=== PATIENT | female | born 1990 | race African-American/Black ===

== ENCOUNTER → 2017-07-18 | Day surgery (SDC) | payer OTHER ==
[~2017-07-18] MED LIST: Acetaminophen 500 MG TAB PO SCH; Iron Sucrose Complex 500 MG in Sodium Chloride 0.9% 250 ML 250 ML IVPB SCH
[2017-07-18 16:00] VITALS: BMI 24.1
--- NOTE | 2017-07-18 16:08 | PDOC.LDHP ---
Addendum entered and electronically signed by Bernie Cain DO 07/18/17 18 :09: Please addend GA where it reads current gestational age (weeks): Should be 36.5 wks Concern for breech presentation: Bedside U/S performed. Vertex position noted on U/S. Original Note: Labor and Delivery H&P Chief complaint: other (Presents for iron infusion) HPI: 26 year old at 36.5 wks by 9.4 wk U/S presents for iron infusion. No complications. Patient taking iron supplementation BID. History of anemia of in prior . Patient denies vaginal discharge, vaginal bleeding , contractions, LOF, shortness of breath, fatigue, or chest pain. Current gestational age (weeks): 35 (35.6) Due date: 08/10/17 Dating criteria: last menstrual period, first trimester ultrasound Grav: 2 Para: 1 OB History Details: 1. Anemia complicating 2. Hx of preeclampsia 3. Hx of prior C/S Current complications: other (Anemia complicating ) Abnormal US findings: No Current medications: pre-lio vitamins, iron (BID), other (Just stopped taking baby ASA for hx of preeclampsia in ) Previous surgical history: low tranverse CS Social history: none - Physical Exam Vital signs reviewed and normal: yes General: NAD, resting Heart: RRR Lungs: nonlabored breathing Abdomen: NTTP Extremeties: no edema FHT: category 1, variability present [place] contractions every: Irritability on strip - OB Labs Blood type: AB RH: positive Antibody Screen: negative HIV: negative RPR: negative HEPSAg: negative GBS: positive Rubella: immune - Assessment 1. IUP 2. Anemia complicating 3. History of preeclampsia in prior 4. Hx of LTCS - Plan -: 1. Patient receiving iron infusion 2. Continue iron BID 3. Continue vitamins 4. BP within normal range 5. Category I strip 6. Routine care <Bernie Cain - Last Filed: 07/18/17 16:05> <Ender Roman - Last Filed: 09/27/17 15:44> Allergies/Adverse Reactions: Allergies Allergy/AdvReac Type Severity Reaction Status Date / Time No Known Allergies Allergy Verified 08/11/17 22:47 Attending Addendum - Attending Addendum Date/Time: 09/27/17 1548 I personally evaluated the patient and discussed the management with Dr. Parada. I agree with the History, Examination, Assessment and Plan documented above with any addition or exceptions noted below. 26 year old at 36.5 wks w/ h/o prior Csxn and PreEc. in prior preg. with severe anemia here for Iron Infusion. Not in labor. <Ender Roman - Last Filed: 09/27/17 15:44>
[2017-07-18 17:46] VITALS: BP 106/56; TEMP 97.9
--- NOTE | 2017-07-18 23:33 | ULT ---
ULTRASOUND BIOPHYSICAL PROFILE: 07/18/17 HISTORY: Large late deceleration. FINDINGS: A single live intrauterine gestation is seen with a heart rate of 157 beats per minute. Placent a is anterior and to the right. DEXTER measures 12.6 cm. to the position is vertex. Normal m ovement, tone, breathing movements and amniotic fluid volume are seen. IMPRESSION: Ultrasound biophysical profile score is 8 out of 8. POS: [facility]
== END | disposition home or self-care (01) ==
LOC: L&D/OP 15:19
PROVIDERS: ATTEND Family Medicine
DX: O99.013 Anemia complicating pregnancy, third trimester (principal); Z79.899 Other long term (current) drug therapy; Z3A.36 36 weeks gestation of pregnancy; Z98.891 History of uterine scar from previous surgery; Z87.59 Personal history of other complications of pregnancy, childbirth and the puerperium
CPT/HCPCS: 76815; 76819; 96365; 96366; 96374; 99283; A4216; J1756; J7050

== ENCOUNTER 2017-08-11 09:36 | Inpatient (IN) | payer OTHER ==
[2017-08-11] MEDS ORDERED: Bupivacaine PF 0.5% 30 ML VIAL ONE (11:11)
[2017-08-11] MEDS ORDERED: Lidocaine 2% MPF 10 ML AMP (For Epidural Use) ONE (11:11)
[2017-08-11 22:56] VITALS: BMI 24.5
[2017-08-11] MEDS ORDERED: Ondansetron HCl/PF 4 MG/2 ML Vial IVP PRN (23:13)
[2017-08-11] MEDS ORDERED: Acetaminophen 500 MG TAB PO PRN (23:13)
[2017-08-11] MEDS ORDERED: Promethazine HCl 25 MG/ML VIAL IM PRN (23:13)
[2017-08-11] MEDS ORDERED: LR / Pitocin 40 units/1000 ml 1,000 ML IV PRN (23:16)
[2017-08-11] MEDS ORDERED: Lidocaine 1% (PF) 30 ML VIAL SC PRN (23:16)
--- NOTE | 2017-08-11 23:38 | PDOC.LDHP ---
Labor and Delivery H&P Chief complaint: scheduled induction HPI: 26 yo @ 40w1d by LMP consistent with 9.4wk US presents for elective balloon induction for TOLAC. She denies vaginal bleeding or discharge. She also denies contractions. She states she has felt movement. She denies vision changes, headaches, abdominal pain, lower extremity edema, or recent illness. She has some concerns about pain associated with the balloon, but other than that no real concerns. Current gestational age (weeks): 40 (1) Due date: 08/10/17 Dating criteria: last menstrual period, first trimester ultrasound (9.4 week US) Grav: 2 Para: 1 OB History Details: - Previous for non-reassuring FHTs - Hx of Pre-eclampsia - Anemia in Current complications: none Abnormal US findings: No Past Medical History: None Current medications: pre-lio vitamins, iron Previous surgical history: low tranverse CS Social history: none - Physical Exam Vital signs reviewed and normal: yes General: NAD, resting Heart: RRR Lungs: CTAB Abdomen: gravid Extremeties: no edema FHT: category 1 (Baseline 150, Moderative Variability, No decels, Positive accelerations) [place] contractions every: 6 minutes - Vaginal Exam cm dilated: 2 Effacement: 50% (60%) Station: -2 - OB Labs Blood type: AB RH: positive Antibody Screen: negative HIV: negative RPR: negative HEPSAg: negative 1 hour GCT: negative GBS: negative Urine drug screen: not done - Assessment L&D Assessment: elective induction at term 26 yo @ 40w1d by LMP consistent with 9.4wk US presents for elective induction 1. Term - TOLAC - Proceed with balloon placement - Q4h checks with balloon tension - monitoring - Continue supportive care - Plan Plan: admit to L&D <Guillermo Chopra - Last Filed: 08/11/17 23:50> <Allison Rodriguez - Last Filed: 08/12/17 01:31> Allergies/Adverse Reactions: Allergies Allergy/AdvReac Type Severity Reaction Status Date / Time No Known Allergies Allergy Verified 08/11/17 22:47 Attending Addendum - Attending Addendum I personally evaluated the patient and discussed the management with Dr. Chopra and Bud I agree with the History, Examination, Assessment and Plan documented above with any addition or exceptions noted below- 30 year old @40 1/7 weeks admitted for balloon cervical ripening for TOLAC. Denies any ctx, LOF, VB. (+) FM. POBHx- LCT C/S @41 weeks for nonreassuring FHTs, chorioamnionitis weight, severe pre-eclampsia 8#7, male PE: Afebrile BP 114/59 Normal labs SVE 2/60/-2 Category 1 FHTs (130s/moderate variability/ (+) accels/no decels) [place] irregular ctx A/P: IUP @ 40 1/7 weeks for balloon cervical ripening for TOLAC Will place balloon and continue to monitor <Allison Rodriguez - Last Filed: 08/12/17 01:31>
[2017-08-11] MEDS: Lactated Ringer's 1,000 ML IV SCH (23:44)
[2017-08-12 00:07] LABS: Hemoglobin 10.3 g/dL (12.0-16.0); Mean Corpuscular HGB CONC 32.6 g/dL (32.0-36.0); Mean Corpuscular Hemoglobin 23.2 pg (27.0-31.0); Mean Corpuscular Volume 71.1 fl (81.0-99.0); Mean Platelet Volume 9.9 fL (7.4-10.4); Platelet Count 189 thou/uL (130-400); RBC Distribution Width 15.4 % (11.5-14.5); Red Blood Cell (RBC) Count 4.42 mill/uL (4.20-5.40); White Blood Cell (WBC) Count 8.7 thou/uL (4.8-10.8)
--- NOTE | 2017-08-12 00:14 | PDOC.LDPN ---
Labor & Delivery Progress Note - Subjective Subjective: comfortable, no concerns - Objective Vital signs reviewed and normal: yes General: NAD Uterine fundus: non tender SVE: 2/60/-2 FHT: category 1 [place] contractions every: 6-8 min Procedures: Cook's Balloon placed with 80ml sterile H20 in each balloon- tolerated well -: 26 yo @ 40w1d by LMP c/w 9.4wk US presents for IOL for TOLAC- 1. Term sIUP- balloon placed at 00:00 on 08/12/17 and tolerated well. 80ml in each balloon with mild traction. leave in place x 12hr with q4hr balloon checks. 2. prior c/s x 1- TOLAC risks & benefits discussed and pt consents to proceed with TOLAC. 3. pain mgmt- epidural prn.
[2017-08-12 00:41] LABS: HBSAg Index 0.77 S/CO (0-0.99); Hep B Surf Ag Non-Reactive S/CO (NonReactive); Syphilis Antibody Nonreactive (Nonreactive); Syphilis Antibody Index 0.06 S/CO (<1.00 Non-Reactive)
--- NOTE | 2017-08-12 06:51 | PDOC.LDPN ---
Labor & Delivery Progress Note - Subjective Subjective: comfortable, vaginal pressure - Objective Vital signs reviewed and normal: yes General: NAD, breathing through contractions Uterine fundus: non tender SVE: 6:30 Dilation: 5.5 Effacement: 50% Station: -2 FHT: category 1, variability present [place] contractions every: 6 Plan: continue plan of care -: 26 yo @ 40w1d by LMP c/w 9.4wk US presents for IOL for TOLAC- 1. Term sIUP- balloon placed at 00:00 on 08/12/17 and tolerated well. 80ml in each balloon with mild traction. Balloon fell out at 0630. Pt checked and has progressed to 5.5/60/-2. Cat 1 strip. FHT 130. Moderate variability noted. -Will check in a few hours. -Possibly start pitocin to help augment labor as ctx are still pretty far apart. 2. prior c/s x 1- TOLAC risks & benefits discussed and pt consents to proceed with TOLAC. 3. pain mgmt- epidural prn. <Jamey Zaragoza - Last Filed: 08/12/17 06:52> Attending Addendum - Attending Addendum I personally evaluated the patient and discussed the management with Dr. Zaragoza I agree with the History, Examination, Assessment and Plan documented above with any addition or exceptions noted below- Patient feeling some mild contractions. Afebrile VSS SVE 5.5/60%/-2 ballotable; Category 1 FHTs; [place]- ctx q6 minutes. A/P: IUP @ 40 1/7 weeks- balloon fell out and now dilated to 5.5 cm; will start pitocin. <Allison Rodriguez - Last Filed: 08/12/17 07:50>
[2017-08-12] MEDS: Lactated Ringer's 1,000 ML IV SCH ×3 (07:02→22:40)
[2017-08-12] MEDS ORDERED: LR 500 ML/Oxytocin 10 units 500 ML IV SCH (07:45)
--- NOTE | 2017-08-12 08:46 | PDOC.LDPN ---
Labor & Delivery Progress Note - Subjective Subjective: comfortable, vaginal pressure - Objective Vital signs reviewed and normal: yes General: NAD, resting Uterine fundus: non tender SVE: 8:30 Dilation: 6 Effacement: 50% Station: -2 FHT: category 1, variability present [place] contractions every: 3-5 min - Assessment (1) Encounter for trial of labor Code(s): O33.9 - MATERNAL CARE FOR DISPROPORTION, UNSPECIFIED Current Visit: Yes Status: Acute (2) Term Code(s): Z34.80 - ENCOUNTER FOR SUPRVSN OF NORMAL , UNSP TRIMESTER Current Visit: Yes Status: Acute Plan: continue plan of care, pitocin for augmentation -: 26 yo @ 40w1d by LMP c/w 9.4wk US presents for IOL for TOLAC- 1. Term sIUP- balloon placed at 00:00 on 08/12/17 and tolerated well. 80ml in each balloon with mild traction. Balloon fell out at 0630. Pt check is 50/-2 @ 0830. Cat 1 strip. FHT 130. Moderate variability noted. -Will check in a few hours. -Pitorcin started to augment labor. Ctx every 3-5 minutes now. 2. prior c/s x 1- TOLAC risks & benefits discussed and pt consents to proceed with TOLAC. 3. pain mgmt- epidural prn. Not having pain very much right now. <Jamey Zaragoza - Last Filed: 08/12/17 08:43> Attending Addendum - Attending Addendum I personally evaluated the patient and discussed the management with Dr. Zaragoza I agree with the History, Examination, Assessment and Plan documented above with any addition or exceptions noted below. 26 yo female at 40.1 wks by LMP/9.5 wk sono here for TOLAC. At this time continues to have cat 1 tracing. SVE now 50/-2. Repeat in 2 hours. Pitocin per protocol. Will access for AROM in order to place IUPC. Case/consult Dr. Soliz. Nontender fundus. Patient managing pain without medications. VaheMD <Meme Burns - Last Filed: 08/12/17 15:46>
--- NOTE | 2017-08-12 10:54 | PDOC.LDPN ---
Labor & Delivery Progress Note - Subjective Subjective: comfortable, vaginal pressure - Objective Vital signs reviewed and normal: yes General: NAD, resting Uterine fundus: non tender SVE: 10:30 Dilation: 7 Effacement: 50% Station: -2 FHT: category 2, late decelerations, variability present [place] contractions every: 3 AROM: meconium stained fluid (thick) IUPC placed: yes FSE placed: yes Resuscitative measures: maternal oxygen, maternal position change - Assessment (1) Encounter for trial of labor Code(s): O33.9 - MATERNAL CARE FOR DISPROPORTION, UNSPECIFIED Current Visit: Yes Status: Acute (2) Term Code(s): Z34.80 - ENCOUNTER FOR SUPRVSN OF NORMAL , UNSP TRIMESTER Current Visit: Yes Status: Acute -: 26 yo @ 40w1d by LMP c/w 9.4wk US presents for IOL for TOLAC- 1. Term sIUP- balloon placed at 00:00 on 08/12/17 and tolerated well. 80ml in each balloon with mild traction. Balloon fell out at 0630. Pt check @ 10:30 7/50/-2. AROM @ 10:30. Thick meconium fluid noted. IUPC placed. Cat 2 strip after AROM, HR dropped into bradycardia in the 90s. FSE was placed and strip improved to Cat 1 w/ FHT around 140. -Will check in a few hours. -Pitorcin to augment labor. Ctx every 3 minutes now 2. prior c/s x 1- TOLAC risks & benefits discussed and pt consents to proceed with TOLAC. 3. pain mgmt- epidural prn. Not having pain very much right now. 4. hx of Preeclampsia in prior preganancy- BP stable 5. hx of GDM A1- passed 1 GTT outpatient. <Jamey Zaragoza - Last Filed: 08/12/17 10:54> Attending Addendum - Attending Addendum I personally evaluated the patient and discussed the management with Dr. Zaragoza I agree with the History, Examination, Assessment and Plan documented above with any addition or exceptions noted below. 26 yo female at 40.1 wk by LMP/9.6 wk sono here for TOLAC. Now with cat 2 tracing. AROM with thick mec. FSE and IUPC placed. Pitocin stopped. O2. IVFs. Position changed. Mod variability slow to return. Will continue to monitor closely. Ctx pattern inadequate without augmentation. Placenta grade 3 to 4 on bedside sono. EFW 7.5 lbs. Painful vaginal exams. Requesting epidural. Nongynecoid pelvis. Low suspicion for successful vaginal delivery. Will repeat exam after epidural. Continue to hold pitocin. If unable to improve tracing will proceed with section. Discussed with patient. R/B/A explained. Questions answered. Agrees with plan. Rosa <Meme Burns - Last Filed: 08/12/17 15:52>
--- NOTE | 2017-08-12 11:51 | PDOC.EVN ---
Event Note - Event Note Event Note: OBGYN Consult Intrapartum: Asked by Dr Burns to assess this patient's FHT strip about 30 minutes earlier. Please see full documentation in the physical chart. DX: Class 2 FHTS in a patient undergoing TOLAC, at 6cm.
[2017-08-12] MEDS ORDERED: Bupivacaine 20 ML, Fentanyl 400 MCG in Sodium Chloride 0.9% 72 ML EPIDURAL SCH ×2 (12:00→12:45)
[2017-08-12] MEDS ORDERED: ePHEDrine/0.9% NaCl/PF SYRINGE 50 mg/10 ml SLOW IVP PRN (12:30)
[2017-08-12] MEDS ORDERED: Lactated Ringer's 500 ML IV PRN (12:30)
[2017-08-12] MEDS ORDERED: Naloxone HCl 0.4 mg/ml Vial IVP PRN ×4 (12:30→14:35)
[2017-08-12] MEDS ORDERED: Communication Order-Pharmacy FS SCH ×2 (12:30→14:45)
[2017-08-12] MEDS ORDERED: Eucerin (Mineral Oil/Petrolatum,White) 30 gm Jar TOP PRN ×2 (12:30→14:35)
[2017-08-12] MEDS ORDERED: Fentanyl 4mcg/Marcaine 0.1% Cassette 100 ML EPIDURAL SCH (12:30)
[2017-08-12] MEDS ORDERED: Bicitra 30 ML UDCUP ONE (14:00)
[2017-08-12] MEDS ORDERED: CEFAZOLIN/Water 2 GM/20 ML SYRINGE ONE (14:00)
[2017-08-12] MEDS ORDERED: Oxytocin 10 UNITS/ML VIAL ONE (14:12)
[2017-08-12] MEDS ORDERED: Bicitra 30 ML UDCUP PO SCH (14:15)
[2017-08-12] MEDS ORDERED: CEFAZOLIN/Water 2 GM/20 ML SYRINGE SLOW IVP SCH (14:15)
[2017-08-12] MEDS ORDERED: Lidocaine 2% PF 5 ML VIAL ONE ×4 (14:19→14:30)
--- NOTE | 2017-08-12 14:20 | PDOC.LDPN ---
Labor & Delivery Progress Note - Subjective Subjective: comfortable (Epidural in place. ) - Objective Vital signs reviewed and normal: yes General: NAD, resting Uterine fundus: non tender Dilation: 7 Effacement: 50% Station: -2 FHT: category 2 (Cat 1 off pitocin. Cat 2 with minimal pitocin. ) [place] contractions every: 1 q10 min Other exam findings: AROM, thick mec. Nongynecoid pelvis. AROM: meconium stained fluid IUPC placed: yes FSE placed: yes Resuscitative measures: maternal oxygen, maternal IV fluids, maternal position change, other (Pitocin stopped) - Assessment (1) History of delivery affecting Code(s): O34.219 - MATERNAL CARE FOR UNSP TYPE SCAR FROM PREVIOUS DEL Current Visit: Yes Status: Acute Comment: NRFHT with pitocin. Nongynecoid pelvis. SVE unchanged since 1030. Unable to remain in adequate contraction pattern without augmentation. Grade 3 to 4 placenta. Anterior. Not low lying. Return to cat 1 tracing slowly off pitocin. Discussed with patient and family. R /B/A discussed. Questions answered. Agreed to proceed with RLTCS for NRFHT with augmentation. NICU and surgical team notified. Plan: other (Proceed for section. )
[2017-08-12] MEDS ORDERED: Naloxone HCl 0.4 mg/ml Vial IV PRN (14:35)
[2017-08-12] MEDS ORDERED: Ondansetron HCl/PF 4 MG/2 ML Vial IVP PRN ×2 (14:35)
[2017-08-12] MEDS ORDERED: diphenhydrAMINE 50 MG/ML VIAL IVP PRN (14:35)
[2017-08-12] MEDS ORDERED: Ketorolac Tromethamine 30 MG/ML VIAL IVP PRN (14:35)
[2017-08-12] MEDS ORDERED: Promethazine HCl 25 MG/ML VIAL IM PRN (14:35)
[2017-08-12] MEDS ORDERED: Meperidine HCl/PF 25 MG/ML VIAL SLOW IVP PRN (14:35)
[2017-08-12] MEDS ORDERED: Promethazine HCl 25 MG SUPP PR PRN (14:35)
[2017-08-12] MEDS ORDERED: Ketorolac Tromethamine 30 MG/ML VIAL IVP SCH (14:45)
[2017-08-12] MEDS ORDERED: Fentanyl 100 MCG/2 ML VIAL ONE ×2 (14:49→15:11)
[2017-08-12] MEDS ORDERED: Morphine PF 1 MG/ML SYR ONE (14:51)
[2017-08-12 15:01] LABS: Analyzer IN Cardio OR; Base Excess (BEa) 0.2 mEq/L (0 (+/-) 2.5)
[2017-08-12] MEDS ORDERED: Meperidine HCl/PF 25 MG/ML VIAL ONE (16:01)
[2017-08-12] MEDS ORDERED: Lanolin Ointment 7 GM TUBE TOP PRN (18:01)
[2017-08-12] MEDS ORDERED: Acetaminophen 325 MG TAB PO PRN (18:01)
[2017-08-12] MEDS ORDERED: Adacel (T-DAP) 0.5 ML VIAL IM ONE (18:01)
--- NOTE | 2017-08-12 18:40 | OP ---
PREOPERATIVE DIAGNOSES: 1. Intrauterine at 40 weeks 1 day. 2. Prior section x1. 3. Nonreassuring heart tones. 4. Failed trial of labor after section. POSTOPERATIVE DIAGNOSES: 1. Intrauterine at 40 weeks 1 day. 2. Prior section x1. 3. Nonreassuring heart tones. 4. Failed trial of labor after section. PROCEDURE: Repeat low-transverse section via Pfannenstiel skin incision. SURGEON: Luzmaria Landis DO ASSISTANTS: 1. Fortino Soria MD 2. Meme Burns MD ANESTHESIA: Epidural. COMPLICATIONS: None. ESTIMATED BLOOD LOSS: 750 mL. FLUIDS: 1 liter of lactated Ringer's. URINE OUTPUT: 100 mL. INDICATIONS: A 26-year-old G2, P1-0-0-1 undergoing attempted trial of labor after section with nonreassuring heart tracing. See note from Dr. Burns for full labor course. The decision to proceed with repeat section was discussed with the patient and the family. Risks, benefits, and alternatives were discussed. Questions were answered and the patient and partner were in agreement to proceed with a repeat low-transverse section. FINDINGS: Male infant in cephalic presentation, delivered at 1445 on 2017. Apgars 7 and 9, weight 8 pounds 1 ounce. Normal uterus, tubes, and ovaries bilaterally. Dense intraabdominal adhesions. DESCRIPTION OF PROCEDURE: After informed consent was obtained, the patient was taken to the operating room where epidural anesthesia was found to be adequate. She was then prepped and draped in the normal sterile fashion in the dorsal supine position with a leftward tilt. A Pfannenstiel skin incision was made with the scalpel and carried through to the underlying layer of the fascia. The fascia was incised in the midline and the incision was extended laterally with Naranjo scissors. The superior aspect of the fascial incision was then grasped with Stefnaie clamps and the rectus muscles were dissected off bluntly. Dense adhesions in the midline were taken down using Naranjo scissors. The inferior aspect of the fascial incision was in a similar fashion grasped with Stefanie clamps and the rectus muscles were dissected off bluntly and using Naranjo scissors to take down the dense adhesions. The underlying rectus muscles were noted to be in the midline with exposed bladder caudally. However, in the cephalad direction, thick adhesions were noted. These adhesions were taken down using a Bovie. Once the peritoneum was identified and entered bluntly, the incision was extended laterally with blunt dissection. A bladder flap was created using Metzenbaum scissors and blunt dissection. The bladder blade was then inserted and the lower uterine segment was incised in a transverse fashion with the scalpel. The uterine incision was bluntly extended. The bladder blade was removed and the infant's head was delivered atraumatically. Cord was clamped and cut and the was handed off to awaiting pediatricians. The placenta was then removed using gentle fundal massage. The uterus was exteriorized and cleared of all clots and debris. The uterine incision was repaired with 1-0 Monocryl in a running locked fashion and the uterus was returned to the abdomen. The gutters were cleared of all clots and debris. The hysterotomy was again visualized and noted to be hemostatic; however, the area of the bladder flap was oozing and there was no single area amenable to be suture or cautery. A piece of Surgicel was placed in this area for hemostasis. The muscle was closed with a single stitch using 0 Vicryl. The fascia was reapproximated with 0 Vicryl in a running fashion. The skin was closed with lebron. The patient tolerated the procedure well. Sponge, lap, and needle counts were correct x2. Ancef 2 g was given prior to the procedure. Fundal massage was performed at the end of the procedure to remove all clots from the lower uterine segment. The patient was taken to the recovery room in stable condition. ABIMAEL
[2017-08-12] MEDS: Ferrous Sulfate 325 MG TAB PO SCH (22:40)
[2017-08-13] MEDS: Lactated Ringer's 1,000 ML IV SCH (04:19)
[2017-08-13 06:15] LABS: Hemoglobin 9.2 g/dL (12.0-16.0); Mean Corpuscular HGB CONC 32.1 g/dL (32.0-36.0); Mean Corpuscular Hemoglobin 23.3 pg (27.0-31.0); Mean Corpuscular Volume 72.5 fl (81.0-99.0); Mean Platelet Volume 9.8 fL (7.4-10.4); Platelet Count 160 thou/uL (130-400); RBC Distribution Width 15.2 % (11.5-14.5); Red Blood Cell (RBC) Count 3.95 mill/uL (4.20-5.40); White Blood Cell (WBC) Count 9.8 thou/uL (4.8-10.8)
--- NOTE | 2017-08-13 07:48 | PDOC.PP ---
Post Progress Note Post Day #: 1 Subjective: Did well overnight. Tolerating po, ambulating ok. PO intake tolerated: yes Flatus: no Ambulation: yes Vital Signs (12 hours) Temp Pulse Resp BP Pulse Ox 08/13/17 03:20 97.9 F 75 18 111/69 98 08/13/17 00:05 97.7 F 76 18 112/61 08/12/17 20:51 97.7 F 72 20 108/62 98 Weight Weight 60.781 kg - Physical Examination General: NAD Cardiovascular: no m/r/g, RRR Respiratory: clear to auscultation bilaterally, non-labored breathing Abdominal: + bowel sounds, no distention, appropriately TTP Fundus firm & at: 2cm below umbilicus Extremities: negative homans (B) Skin: CS incision dry & intact Neurological: no gross focal deficits Psychiatric: A&Ox3, normal affect Result Diagrams: 08/13/17 05:50 Additional Labs: Post Labs Blood Type AB POSITIVE 08/11/17 23:16 Hep Bs Antigen Non-Reactive S/CO (NonReactive) 08/11/17 23:16 (1) Term Code(s): Z34.80 - ENCOUNTER FOR SUPRVSN OF NORMAL , UNSP TRIMESTER Status: Acute Comment: 26 yo delivered MARGARITAA M via R LTCS at 1445 on . EBL 750. Tolerating po, ambulating. Armas out this AM. Pain well- controlled at this time. (2) Anemia Code(s): D64.9 - ANEMIA, UNSPECIFIED Status: Chronic Comment: Down from 10 to 9.2, has had anemia during . Continue iron. <Fortino Soria - Last Filed: 08/13/17 08:21> Vital Signs (12 hours) Temp Pulse Resp BP 08/13/17 16:05 98.0 F 69 20 08/13/17 12:10 98.0 F 69 20 94/53 L 08/13/17 11:00 97.9 F 81 20 08/13/17 08:35 97.9 F 81 20 106/53 L 08/13/17 07:50 97.9 F 75 18 Weight Weight 60.781 kg Result Diagrams: 08/13/17 05:50 Additional Labs: Post Labs Blood Type AB POSITIVE 08/11/17 23:16 Hep Bs Antigen Non-Reactive S/CO (NonReactive) 08/11/17 23:16 <Meme Burns - Last Filed: 08/13/17 17:29> Attending Addendum - Attending Addendum I personally evaluated the patient and discussed the management with Dr. Soria I agree with the History, Examination, Assessment and Plan documented above with any addition or exceptions noted below. 26 yo now female s/p RLTCS on 08/12/17 at 1445 due to NRFHT and labor dystocia. POD/PPD #1 Doing well. Pain controlled. + Flatus. Lochia appropriate. VSS. Afebrile. No respiratory distress. Fundus firm. -3 cm below umbilicus. Incision healing well. C/D and no drainage. Patrizia in place. 1. s/p RLTCS: Routine care. 2. Iron def anemia: H&H appropriate post op. Continue iron. 3. 4. Contraception: LRAC Dispo: Routine care. Home on POD#3. Patrizia to be removed prior to dc if able. ABrayMD <Meme Burns - Last Filed: 08/13/17 17:29>
[2017-08-13] MEDS: Ferrous Sulfate 325 MG TAB PO SCH ×2 (08:49→21:13)
[2017-08-13] MEDS: Prenatal Vitamin 1 TAB PO SCH (08:49)
[2017-08-13] MEDS: HYDROcodone/Acetaminophen 5/325 mg Tablet PO PRN ×2 (08:50→12:46)
[2017-08-13] MEDS: Ibuprofen 800 MG TAB PO SCH ×2 (13:47→21:13)
[2017-08-14] MEDS: Ibuprofen 800 MG TAB PO SCH ×2 (06:24→13:36)
[2017-08-14] MEDS: HYDROcodone/Acetaminophen 5/325 mg Tablet PO PRN ×2 (06:31→12:01)
--- NOTE | 2017-08-14 08:30 | PDOC.PP ---
Post Progress Note Post Day #: 2 Subjective: No concerns this morning. Desires to go home today. PO intake tolerated: yes Flatus: yes Ambulation: yes Weight Weight 60.781 kg - Physical Examination General: NAD Cardiovascular: no m/r/g, RRR Respiratory: clear to auscultation bilaterally, non-labored breathing Abdominal: + bowel sounds, no distention, appropriately TTP Fundus firm & at: 3cm below umbilicus Extremities: negative homans (B) Skin: CS incision dry & intact, no rash Neurological: no gross focal deficits Psychiatric: A&Ox3, normal affect Result Diagrams: 08/13/17 05:50 Additional Labs: Post Labs Blood Type AB POSITIVE 08/11/17 23:16 Hep Bs Antigen Non-Reactive S/CO (NonReactive) 08/11/17 23:16 (1) Term Code(s): Z34.80 - ENCOUNTER FOR SUPRVSN OF NORMAL , UNSP TRIMESTER Status: Acute Comment: 26 yo delivered TAGA M via R LTCS at 1445 on . EBL 750. Tolerating po, ambulating. Pain well-controlled at this time. Plan for d/c at 48hrs post-op today. [place] out next week at PP visit. (2) Anemia Code(s): D64.9 - ANEMIA, UNSPECIFIED Status: Chronic Comment: Down from 10 to 9.2, has had anemia during . Continue iron. F/u at 6wk PP visit. <Fortino Soria - Last Filed: 08/14/17 08:30> Vital Signs (12 hours) Temp Pulse Resp BP 08/14/17 12:13 98.3 F 87 18 104/88 08/14/17 08:10 98.6 F 92 18 111/58 L 08/14/17 08:00 98.4 F 78 20 Weight Weight 60.781 kg Result Diagrams: 08/13/17 05:50 Additional Labs: Post Labs Blood Type AB POSITIVE 08/11/17 23:16 Hep Bs Antigen Non-Reactive S/CO (NonReactive) 08/11/17 23:16 <Meme Burns - Last Filed: 08/14/17 13:21> Attending Addendum - Attending Addendum I personally evaluated the patient and discussed the management with Dr. Soria I agree with the History, Examination, Assessment and Plan documented above with any addition or exceptions noted below. 26 yo now female s/p RLTCS on 08/12/17 at 1445 due to NRFHT and labor dystocia. POD/PPD #2 Doing well. No acute changes. Pain controlled. + Flatus. Lochia appropriate. Ambulating without complications. VSS. Afebrile. No respiratory distress. Fundus firm. -3 cm below umbilicus. Incision healing well. C/D and no drainage. [place] in place. 1. s/p RLTCS: Routine care. [place] out on POD#5 in clinic. 2. Iron def anemia: H&H appropriate post op. Continue iron. 3. 4. Contraception: LRAC Dispo: Requesting d/c to home today. No complications. Pain controlled. + flatus. Will need lebron out POD#5 in clinic the follow up for 2 wk pp visit. Rosa <Meme Burns - Last Filed: 08/14/17 13:21>
[2017-08-14] MEDS: Lactated Ringer's 1,000 ML IV SCH (08:58)
[2017-08-14] MEDS: Prenatal Vitamin 1 TAB PO SCH (09:27)
[2017-08-14] MEDS: Ferrous Sulfate 325 MG TAB PO SCH (09:28)
[2017-08-14 12:13] VITALS: BP 104/88; TEMP 98.3
== END 2017-08-14 15:50 | disposition home or self-care (01) | DRG 766 ==
LOC: L&D 21:55 → 3SW 08-12 17:46
PROVIDERS: ADMIT Family Medicine; ATTEND Family Medicine
PROC: 10D00Z1 Extraction of Products of Conception, Low, Open Approach (ICD-10-PCS; principal; 2017-08-12)
PROC: 10907ZC Drainage of Amniotic Fluid, Therapeutic from Products of Conception, Via Natural or Artificial Opening (ICD-10-PCS; 2017-08-12)
PROC: 0U7C7ZZ Dilation of Cervix, Via Natural or Artificial Opening (ICD-10-PCS; 2017-08-12)
DX: O34.211 Maternal care for low transverse scar from previous cesarean delivery (principal); D50.8 Other iron deficiency anemias; K66.0 Peritoneal adhesions (postprocedural) (postinfection); N85.8 Other specified noninflammatory disorders of uterus; Z37.0 Single live birth; O76 Abnormality in fetal heart rate and rhythm complicating labor and delivery; O99.62 Diseases of the digestive system complicating childbirth; Z3A.40 40 weeks gestation of pregnancy; O77.0 Labor and delivery complicated by meconium in amniotic fluid; O99.02 Anemia complicating childbirth
CPT/HCPCS: 36415; 51702; 76815; 82805; 85027; 86780; 86850; 86900; 86901; 87340; 88307; C1726; J1885; J2001; J2175; J2274; J2405; J2590; J3010; J3490; J7050; J7120; S0020

== ENCOUNTER 2019-01-17 12:35 | Emergency (ER) | payer OTHER, SELFPAY | END 2019-01-17 16:02 | disposition home or self-care (01) | LOC: ERS 12:35 | DX: F41.1 Generalized anxiety disorder (principal); H43.399 Other vitreous opacities, unspecified eye; F17.290 Nicotine dependence, other tobacco product, uncomplicated ==

== ENCOUNTER 2019-08-17 05:25 | Outpatient (CLI) | payer OTHER ==
[2019-08-17 13:05] LABS: Mean Corpuscular HGB CONC 31.5 g/dL (32.0-36.0); Mean Platelet Volume 9.8 fL (7.4-10.4); Platelet Count 228 thou/uL (130-400); RBC Distribution Width 13.7 % (11.5-14.5); Red Blood Cell (RBC) Count 5.67 mill/uL (4.20-5.40); White Blood Cell (WBC) Count 5.9 thou/uL (4.8-10.8)
[2019-08-17 13:12] LABS: BHCG - Serum Negative (NEGATIVE); Pregs Control Background? CLEAR/WHITE (CLR/WHITE); Pregs Control Bar Appear? YES (CONTROL BAR)
[2019-08-17 13:22] LABS: Band 3 % (5-11); Elliptocytes SLIGHT = 2-5 cells (100X) (0-1/hpf); Eosinophils 1 % (0-10); Hypochromia SLIGHT = 6-15 cells (100X) (0-5/hpf); Lymphocytes 48 % (21-51); MDiff Complete? YES; Microcytosis SLIGHT = 6-15 cells (100X) (0-5/hpf); Monocytes 3 % (0-10); Neutrophil 41 % (42-75); Ovalocytes SLIGHT = 2-5 cells (100X) (0-1/hpf); Platelet Morphology Comment Appears Adequate; Polychromasia SLIGHT = 2-3 cells (100X) (0-2/hpf); Reactive Lymphocytes 3 % (0-10); Schistocytes SLIGHT = 2-5 cells (100X) (0-1/hpf)
[2019-08-17 13:30] LABS: Anion Gap 11 mmol/L (10-20); BUN (Urea Nitrogen) 8 mg/dL (7.0-18.7); Calc. Creatinine Clearance 0 mL/min (70-130); Calcium 9.5 mg/dL (7.8-10.44); Carbon Dioxide 26 mmol/L (22-29); Chloride 104 mmol/L (98-107); Estimated GFR-MDRD Greater than 90; Glucose 88 mg/dL (70-105); Potassium 4.1 mmol/L (3.5-5.1); Sodium 137 mmol/L (136-145)
== END 2019-08-17 05:26 | disposition home or self-care (01) ==
LOC: LABBT 05:25
PROVIDERS: ATTEND Surgery
DX: Z01.818 Encounter for other preprocedural examination (principal); K43.9 Ventral hernia without obstruction or gangrene
CPT/HCPCS: 80048; 84703; 85025; 93005; 93010

== ENCOUNTER 2019-08-23 06:26 | Day surgery (SDC) | payer OTHER ==
[2019-08-17 12:06] VITALS: BMI 19.0
[2019-08-23] MEDS ORDERED: Bupivacaine PF 0.5% 30 ML VIAL ONE (06:39)
[2019-08-23] MEDS ORDERED: Lidocaine 1% w/Epinephrine 1:100K 20 ML VIAL ONE (06:39)
[2019-08-23] MEDS ORDERED: Midazolam HCl 2 mg/2 ml Vial ONE ×2 (07:06→07:49)
[2019-08-23] MEDS ORDERED: Fentanyl 100 MCG/2 ML VIAL ONE ×2 (07:06)
[2019-08-23] MEDS ORDERED: HYDROcodone/Acetaminophen 5/325 mg Tablet ONE (12:23)
[2019-08-23] MEDS ORDERED: diphenhydrAMINE 50 MG/ML VIAL ONE (14:24)
[2019-08-23] MEDS ORDERED: Rocuronium Bromide 10 MG/ML (10ML VIAL) ONE (14:24)
[2019-08-23] MEDS ORDERED: PROPOFOL 200 MG/20 ML VIAL ONE (14:24)
[2019-08-23] MEDS ORDERED: Esmolol 100 MG/10 ML VIAL ONE (14:24)
[2019-08-23] MEDS ORDERED: Dexamethasone 20 MG/5 ML VIAL ONE (14:24)
[2019-08-23] MEDS ORDERED: Ondansetron PF 4 MG/2 ML Vial ONE (14:24)
[2019-08-23] MEDS ORDERED: Ketorolac Tromethamine 30 MG/ML VIAL ONE (14:24)
[2019-08-23] MEDS ORDERED: Glycopyrrolate 0.2 MG/ML 5 ML SYRINGE ONE (14:24)
--- NOTE | 2019-08-24 08:56 | OP ---
DATE OF PROCEDURE: 08/23/2019 PREOPERATIVE DIAGNOSIS: Ventral hernia. POSTOPERATIVE DIAGNOSIS: Ventral hernia. PROCEDURE PERFORMED: Laparoscopic da Ursula robot ventral hernia repair with mesh, [address] ANESTHESIA: General. ESTIMATED BLOOD LOSS: Minimal. COMPLICATIONS: None. DESCRIPTION OF PROCEDURE: The patient was taken to the operating room and laid supine on the operating room table. After general anesthetic was obtained, the Armas was placed and the abdomen was prepped and draped in a sterile fashion. Left subcostal 5-mm Optiview trocar was placed in usual fashion. High-flow pneumoperitoneum was obtained. Left and right upper abdominal 8-mm robot trocars were all placed under direct visualization. The peritoneum was taken down in the posterior midline exposing the ventral hernia. A small amount of preperitoneal fat was in the hernia. The patient had a mild diastasis as well. #1 V-Loc suture was used to close the diastasis in the hernia defect. [address] mesh was marked and placed in the abdominal cavity. The exposed mesh side was placed up against the fascia. The nonadherent layer was placed. It was left down against the abdominal viscera. The mesh was sewn via 2-0 V-Loc to the posterior fascia. All needles were removed from the abdomen and accounted for. All ports were removed under camera visualization. Pneumoperitoneum was let down. 4-0 Monocryl and Dermabond was used to close all skin incisions. The patient was sent to Recovery in stable condition. All instrument counts, needle counts, and lap counts were correct. Job ID: [id number]
== END 2019-08-23 13:10 | disposition home or self-care (01) ==
LOC: SDC 06:26
PROVIDERS: ATTEND Surgery
PROC: 0WUF4JZ Supplement Abdominal Wall with Synthetic Substitute, Percutaneous Endoscopic Approach (ICD-10-PCS; principal; 2019-08-23)
DX: K43.9 Ventral hernia without obstruction or gangrene (principal); E11.9 Type 2 diabetes mellitus without complications; I10 Essential (primary) hypertension; Z87.891 Personal history of nicotine dependence; Z79.899 Other long term (current) drug therapy
CPT/HCPCS: C1781; J0690; J1100; J1200; J1885; J2250; J2405; J2704; J3010; S0020

== ENCOUNTER 2019-11-23 14:29 | Outpatient (CLI) | payer OTHER ==
--- NOTE | 2019-11-23 16:08 | ULT ---
THYROID ULTRASOUND: 11/23/19 INDICATIONS: Thyroid nodule. No comparison studies. FINDINGS: Both lobes of the thyroid are homogeneous. Thyroid size is within normal range. Both lobes measure ap proximately 4.5 x 1.5 x 1.0 cm. There is a heterogeneous nodule in the inferior left lobe of the thyroid measuring approximately 1.0 cm. There appears to be tiny internal cystic components. This is predominantly solid. There is a smaller isoechoic nodule in the mid right lobe which measures 0.3 to 0.5 cm. IMPRESSION: 1. Heterogeneous nodule in the inferior left lobe is a TI-RADS 3. Since its size is less than 2 cm, follow-up is recommended with repeat thyroid ultrasound in six months. 2. There is a tiny nodule in the right lobe that can be reassessed on the follow-up exam. POS: K[facility]A
== END 2019-11-23 14:30 | disposition home or self-care (01) ==
LOC: BICULT 14:29
PROVIDERS: ATTEND Family Medicine
DX: E07.9 Disorder of thyroid, unspecified (principal); E04.2 Nontoxic multinodular goiter; D56.0 Alpha thalassemia
CPT/HCPCS: 36415; 76536; 84436; 84443; 84479; 85025

== ENCOUNTER 2021-08-12 07:48 | Outpatient (CLI) | payer OTHER | END 2021-08-12 07:49 | disposition home or self-care (01) | LOC: BICULT 07:48 | PROVIDERS: ATTEND Family Medicine | DX: D56.0 Alpha thalassemia (principal); E04.1 Nontoxic single thyroid nodule | CPT/HCPCS: 76536 ==